=== PATIENT | male | born 1960 | race Caucasian/White ===

== ENCOUNTER → 2020-05-15 07:35 | Outpatient (CLI) | payer OTHER, SELFPAY ==
--- NOTE | ~2020-05-15 | MR_ITS ---
EXAMINATION: MR knee RT wo con DATE: 05/15/2020 08:17 INDICATION: Right knee pain TECHNIQUE: Magnetic resonance imaging (MRI) of the right knee was performed without intravenous contr ast. Sequences included coronal PD-weighted FSE, coronal PD-weighted FS FSE, sagittal T2-weighted FS E, sagittal PD-weighted FS FSE and axial PD weighted fat saturated FSE. COMPARISON: None. FINDINGS: Medial compartment: Complex medial meniscal tear with longitudinal horizontal tear extending to the superior articular miller rface of the posterior body and posterior horn with additional secondary tear planes at the medial si de of the posterior horn including a parrot beak configuration tear plane. There is chondral swelling with fissuring along the lateral margin of the central weightbearing medial femoral condyle with desiree rly imperceptible underlying cortical irregularity. Lateral compartment: Lateral meniscus is normal. Deep chondral fissuring with underlying subtle cortical irregularity and minimal increased marrow signal at the posterior weightbearing lateral femoral condyle. Patellofemoral compartment: Deep chondral fissuring with crabmeat-like appearance and with underlying mild cortical irregularity and increased marrow signal at the cephalad two thirds of the medial patellar facet. Shallow chondral surface regularity scattered along portions of the remaining patella. Deep chondral ulceration along significant portion of the lateral trochlea. Underlying flat subchondral osteophyte at the central a spect of the lateral trochlea and more prominent irregularity, subarticular cystic change and increas ed marrow signal at the inferior aspect of the lateral trochlea. Ligaments and tendons: Anterior and posterior cruciate ligaments are normal. The medial collateral ligament and fibular neela ateral ligament complex are normal. The extensor mechanism is normal. Mild tendinopathy without discr ete tear of the distal semimembranosus tendon. The remainder of the visualized medial and lateral ham string tendons as well as the iliotibial band are normal. Fluid: Moderate-sized right knee joint effusion. There is also a moderate sized Rhodes's cyst. There is a 7 x 7 x 1-2 mm loose body, possibly a displaced chondral fragment in the recess along the posterior infe rior margin of the medial side of the posterior horn of the lateral meniscus. Mild synovitis and an a dditional tiny loose body within the Rhodes's cyst. Mild prepatellar edema surrounding the small fluid containing prepatellar bursa consistent with bursitis. Osseous/other: Normal marrow signal aside from the previously noted small regions of likely degenerative subarticula r increased signal. No fracture or pathologic marrow replacing process. IMPRESSION: 1. Complex medial meniscal tear. 2. Mild tricompartmental osteoarthritis with regions of moderate to high-grade chondromalacia in all 3 compartments 3. Moderate-sized knee joint effusion with small loose body, possibly displaced chondral fragment at the posterior posterior recess of the lateral compartment. 4. Moderate sized Rhdoes's cyst. 5. Mild prepatellar bursitis. Reviewed, dictated and finalized at location B. MS COUNSEL IMPRESSION: 1. Complex medial meniscal tear. 2. Mild tricompartmental osteoarthritis with regions of moderate to high-grade chondromalacia in all 3 compartments 3. Moderate-sized knee joint effusion with small loose body, possibly displaced chondral fragment at the posterior posterior recess of the lateral compartment . 4. Moderate sized Rhodes's cyst. 5. Mild prepatellar bursitis.
== END ==
DX: S83.231A Complex tear of medial meniscus, current injury, right knee, initial encounter (principal); M17.11 Unilateral primary osteoarthritis, right knee; M71.21 Synovial cyst of popliteal space [Baker], right knee
CPT/HCPCS: 73721

== ENCOUNTER → 2020-05-22 08:31 | Outpatient (CLI) | payer OTHER, SELFPAY ==
--- NOTE | ~2020-05-22 | MR_ITS ---
EXAMINATION: MR shoulder LT wo con DATE: 05/22/2020 09:58 INDICATION: Rotator cuff tear. TECHNIQUE: Magnetic resonance imaging (MRI) of the left shoulder was performed without intravenous co ntrast. Sequences included axial PD-weighted FS FSE, coronal oblique PD-weighted FS FSE and T2-weight ed FS FSE, and sagittal oblique T2-weighted FS FSE and T1-weighted FSE. COMPARISON: None. FINDINGS: Coracoacromial arch: The acromion undersurface is curved in morphology with anterior hook (type III). There is severe acro mioclavicular joint osteoarthritis including inferiorly directed osteophytes. There is mild subacromi al/subdeltoid bursitis. Rotator cuff: There is severe supraspinatus and infraspinatus tendinopathy. There is articular sided partial-thickn ess tear of supraspinatus and infraspinatus tendons measuring 1.4 cm anterior to posterior by 4 mm pr oximal to distal by 70% tendon thickness. Teres minor tendon is normal. There is severe subscapularis tendinopathy with articular-sided partial-thickness tear. There is no asymmetric fatty atrophy of th e rotator cuff muscle bellies. Biceps tendon and glenoid labrum: Biceps tendon is in bicipital groove. Intra-articular biceps tendon is normal. The glenoid labrum is normal. Fluid: There is a small glenohumeral joint effusion. Bones/cartilage: Glenoid cartilage is normal. Humeral head cartilage is normal. IMPRESSION: 1. Severe rotator cuff tendinopathy with articular-sided, partial-thickness tears. 2. Small glenohumeral joint effusion. 3. Severe acromioclavicular joint osteoarthritis. 4. Mild subacromial/subdeltoid bursitis. Reviewed, dictated and finalized at location A. SS CLERK IMPRESSION: 1. Severe rotator cuff tendinopathy with articular-sided, partial-thickness tea rs. 2. Small glenohumeral joint effusion. 3. Severe acromioclavicular joint osteoarthritis. 4. Mild subacromial/subdeltoid bursitis.
--- NOTE | ~2020-05-22 | MR_ITS ---
EXAMINATION: MR shoulder RT wo con DATE: 05/22/2020 09:58 INDICATION: Right rotator cuff tear. TECHNIQUE: Magnetic resonance imaging (MRI) of the right shoulder was performed without intravenous c ontrast. Sequences included axial PD-weighted FS FSE, coronal oblique PD-weighted FS FSE and T2-weigh keith FS FSE, and sagittal oblique T2-weighted FS FSE and T1-weighted FSE. COMPARISON: None. FINDINGS: Coracoacromial arch: The acromion undersurface is curved in morphology with anterior hook (type III). There is severe acro mioclavicular joint osteoarthritis including inferiorly directed osteophytes. There is moderate subac romial/subdeltoid bursitis. Rotator cuff: There is moderate supraspinatus and infraspinatus tendinopathy. In posterior supraspinatus tendon, th ere is an articular-sided partial-thickness tear measuring 2 mm proximal to distal by 2 mm anterior t o posterior by 15% tendon thickness. There is mild teres minor tendinopathy. There is moderate subsca pularis tendinopathy. There is no asymmetric fatty atrophy of the rotator cuff muscle bellies. Biceps tendon and glenoid labrum: Biceps tendon is in bicipital groove. Intra-articular biceps tendon is normal. The glenoid labrum is intact. Fluid: There is no glenohumeral joint effusion. Bones/cartilage: Glenoid cartilage is normal. Humeral head cartilage is normal. IMPRESSION: 1. Moderate rotator cuff tendinopathy with small articular-sided, partial-thickness tear of supraspin atus tendon. 2. Moderate subacromial/subdeltoid bursitis. 3. Severe acromioclavicular joint osteoarthritis. Reviewed, dictated and finalized at location A. ER MONKEY IMPRESSION: 1. Moderate rotator cuff tendinopathy with small articular-sided, partial-thick ness tear of supraspinatus tendon. 2. Moderate subacromial/subdeltoid bursitis. 3. Severe acromioclavicular joint osteoarthritis.
== END ==
DX: M75.102 Unspecified rotator cuff tear or rupture of left shoulder, not specified as traumatic (principal); M25.412 Effusion, left shoulder; M19.012 Primary osteoarthritis, left shoulder; M75.52 Bursitis of left shoulder; M19.011 Primary osteoarthritis, right shoulder; M75.51 Bursitis of right shoulder
CPT/HCPCS: 73221

== ENCOUNTER 2021-11-11 01:31 | Day surgery (SDC) | payer OTHER, SELFPAY ==
[2021-11-08 08:53] VITALS: BMI 31.1
--- NOTE | 2021-11-08 09:02 | PC.NURSE ---
Report to the Outpatient Waiting Room, entrance under the green pavilion located off [facility], at time 0800 on date 11/11/21. OR Time: 1000. - You and your visitor will be asked to self-screen and do not enter if you have any COVID symptoms. - Only one visitor and NO children visitors are allowed at this time. - The patient visitor is requested to leave or wait in car when not with patient due to restrictions. - A mask is required within the hospital. Patients may have clear liquids (water, carbonated beverages, clear teas, apple juice) until 3 hours prior to surgery with a maximum of 20 ounces. - No food from midnight until time of surgery Take the following medications with a SIP of water the morning of surgery: NONE Medications to discontinue per physician: VITAMIN Date to take last dose: 11/07/21 Please no make-up, nail vincentian, hairspray, perfume, deodorant, or body powder the day of surgery. No jewelry (including any body piercings) or valuables the day of surgery, leave them at home. Please take a shower or bath the night before, or the morning of, surgery with an antibacterial soap. Wear comfortable, loose fitting clothing. - Jewelry must be removed prior to entering the operating room. Rings and piercings that are not removed may be cut off. - The hospital will not accept responsibility for valuables. - Please leave all valuables, including medications, at home the day of surgery. If you are going home after surgery, a licensed local company tanker driver must drive you home. - NO public transportation without another adult. - We recommend that an adult stay with you for 24 hours following discharge. - We also recommend that you do not drive, make important decision, drink alcoholic beverages, or take any drugs that were not prescribed by your health care provider for at least 24 hours after your discharge time. Follow any additional instructions given to you from your surgeon. If you or anyone in your household have experienced Covid symptoms in the past week, please notify your surgeon or the nurse liaison at the phone number below for possible testing. Telephone instructions given to PT - VISHAL TANG and asked if any additional questions and then verbalized understanding. Patient advised to call surgeon office or pre surgery nurse liaison [phone] if any additional questions.
[2021-11-11 08:14] VITALS: BP 131/76; PULSE 52; RESP 16; TEMP 36.3; O2SAT 98
--- NOTE | 2021-11-11 08:28 | SUR.PREOP ---
DR JOHANSEN STATES NO SHAVE NEEDED IF PT HAND IS NOT EXTREMELY HAIRY
[2021-11-11] MEDS: LACTATED RINGERS 1,000 ML 30 ML IV CONT ×2 (08:41→10:17)
[2021-11-11] MEDS: KETOROLAC 15 MG/ML VIAL (*BKC) IV PUSH (08:42)
[2021-11-11] MEDS: ACETAMINOPHEN 500 MG TABLET 1000 MG PO (08:42)
--- NOTE | 2021-11-11 09:08 | P.PNAN_ITS ---
Anes - Initial Pre Proc Eval Procedure: Operation Date: 11/11/21 10:00 Proposed Procedures p Left Trigger Thumb Release - Jose Ramon Vargas MD Date/Time: 11/11/21 09:08 Surgeon: Jose Ramon Vargas MD Pre Op Diagnosis: Lt Trigger Thumb Patient Data Age: 60 Gender: M Height: 1.73 m Weight: 93.5 kg Last Vital Signs Temp 36.3 C L 11/11/21 08:14 Pulse 52 L 11/11/21 08:14 Resp 16 11/11/21 08:14 BP 131/76 11/11/21 08:14 Pulse Ox 98 11/11/21 08:14 O2 Del Method Room Air 11/11/21 08:14 Allergies Allergy/AdvReac Type Severity Reaction Status Date / Time No Known Allergies Allergy Verified 11/08/21 08:52 Home Medications Medication Instructions Recorded Confirmed Type alprazolam 0.25 mg tablet 0.25 mg PO DAILY 11/07/21 11/11/21 History aspirin 81 mg capsule 81 mg PO DAILY 11/07/21 11/11/21 History atenolol 25 mg tablet 25 mg PO DAILY 11/07/21 11/11/21 History multivitamin 1 tablet PO DAILY 11/07/21 11/11/21 History sertraline 50 mg tablet 50 mg PO DAILY 11/07/21 11/11/21 History Patient hx anesthesia problems: none Family hx anesthesia problems: none Results Review: All pre-operative results and documents have been reviewed as part of the pre- operative evaluation. [facility] Past Medical History Medical History Anxiety Depression Hypertension PATRICIA (obstructive sleep apnea) Trigger thumb, left thumb Surgical History Surgical History H/O sinus surgery History of knee surgery History of varicocele Family History Family History Father Family history of alcoholism Family history of cancer Hypertension Depression Cerebrovascular accident Mother Diabetes mellitus Social History Social History Smoking status: Never smoker Alcohol intake: current Drinks per week: 2 Substance use: never Substance use type: does not use Living arrangements: with family Gender identity (if verbalized by the patient): Male Spiritual care concerns: No Anes - Eval Final PreProcedure Day of Procedure 11/11/21 09:08 Patient weight: obese Heart: regular rate and rhythm Lungs: clear to auscultation Airway: Mallampati scale class II Neurological: alert and oriented Last oral intake: >/= 8 hours ASA classification: III Emergent: no Anesthetic plan: proceed Anesthesia type and monitoring: general GIVS and standard monitoring Results Review: All pre-operative results and documents have been reviewed as part of the pre- operative evaluation. Informed Consent: The patient's anesthetic plan and its attendant risks and benefits were discussed with the patient/family/POA. Questions were solicited and answers provided to the satisfaction of the patient/family/POA.
--- NOTE | 2021-11-11 09:11 | WPDHPUPDATE1 ---
History and Physical Update Update Date/Time: 11/11/21 09:11 History and Physical has been reviewed, including an updated exam of the patient. There are NO changes in the patient's condition. Risks, benefits, and alternatives have been discussed and questions answered. Patient agrees to proceed with procedure.
[2021-11-11] MEDS: ceFAZolin 2 GM/D5W 50 ML 2 GM/50 ML BAG IVPB (09:37)
[2021-11-11] MEDS: BUPIVACAINE HCL 0.25% PF 30 ML VIAL INFILTRATE (10:01)
[2021-11-11 10:17] VITALS: BP 105/61; PULSE 56; RESP 14; O2SAT 96
--- NOTE | 2021-11-11 10:24 | P.OP_ITS ---
Procedure Note - Detailed Date of Procedure 11/11/21 Pre-op Diagnosis Lt Trigger Thumb Post-op Diagnosis Same Procedure Performed Left trigger thumb release Surgeon Jose Ramon Vargas MD Heel Coverer Machine Operator Apple Paz Anesthesia MAC and Local Description of Procedure The patient was identified and proper site identified. He was taken to the operating room and transferred to the OR table placing supine taking care to pad the torso and extremities. He was administered IV sedation. A nonsterile tourniquet was placed high on the left arm which was prepped and draped in the usual sterile fashion. Several cc of .25 % plain Marcaine was injected into the subcutaneous tissue over the A1 christopher of the left first digit. The extremity was exsanguinated and the tourniquet was inflated to 250 mmHg remaining up for about 14 minutes. A longitudinal incision was made over the A1 christopher. Subcutaneous tissue was bluntly dissected down to the christopher while protecting the neurovascular bundles. The A1 christopher was identified and then transected longitudinally in line with the incision and tendons. The tendons were delivered into the wound verifying the adequacy of the release. Hemostasis was carried out. The wound was irrigated with sterile saline. Skin edges were r eapproximated with 4-0 nylon suture. Sterile dressing was applied. Tourniquet was released. He tolerated the procedure well and was transferred back to a cart, then taken to the recovery area in stable condition. There were no known intraoperative complications. Estimated blood loss was negligible. Perioperative antibiotics were administered. Estimated Blood Loss 1 Tourniquet Time 14 Drains No Packing No Pathology None sent Complications No immediate complications Condition Stable Disposition PACU
[2021-11-11 10:45] VITALS: BP 108/55; PULSE 50; RESP 20
[2021-11-11 11:10] VITALS: BP 113/60; PULSE 52; RESP 20
== END 2021-11-11 11:20 | disposition home or self-care (01) ==
PROVIDERS: Visit Provider Orthopaedic Surgery
PROC: (CPT 26055; principal; 2021-11-11 10:00)
DX: M65.312 Trigger thumb, left thumb (principal); I10 Essential (primary) hypertension; G47.33 Obstructive sleep apnea (adult) (pediatric); F41.9 Anxiety disorder, unspecified; F32.A Depression, unspecified; Z79.82 Long term (current) use of aspirin; E66.9 Obesity, unspecified; Z68.31 Body mass index [BMI] 31.0-31.9, adult
CPT/HCPCS: 26055; A9270; J0690; J1885; J2250; J2704; J3010; J7120

== ENCOUNTER 2024-04-11 09:08 | Outpatient (CLI) | payer OTHER, SELFPAY ==
--- NOTE | 2024-04-11 09:27 | ECG_ITS ---
Test Date: 2024-04-11 09:37:39 Measurements Intervals [place] Rate: 60 P: 57 SC: 191 QRS: 43 QRSD: 93 T: 31 QT: 382 QTc: 382 Interpretive Statements SINUS RHYTHM WARNING: DATA QUALITY MAY AFFECT INTERPRETATION No previous ECG available for comparison Electronically Signed On 04-11-2024 13:41:54 SPIRAL TUBE WINDER HELPER by Shad Marks M.D.
--- OUTSIDE RECORDS SUMMARY | 2024-04-11 09:49 | XMS_ITS | Clinical Summary ---
Author Organization [facility] Address [address] [place] [address]. [place], [place] [id number] [place] [address] Care Team Providers Care Dye Range Operator Cloth Name Role Phone Anabelle Tracy MD Primary Care Provider [phone] Allergies No known active allergies Immunizations Name Administration Dates Next Due Tdap (Adacel) 03/22/2020 Social History Tobacco Use Types Packs/Day Years Used Date Smoking Tobacco: Never Smokeless Tobacco: Never Alcohol Use Standard Drinks/Week Comments Not Currently 0 (1 standard drink = 0.6 oz pur e alcohol) Sex and Gender Information Value Date Recorded Sex Assigned at Not on file Legal Sex Male 7:59 PM CDT Gender Identity Not on file Sexual Orientation Not on file Last Filed Vital Signs Vital Sign Reading Time Taken Comments Blood Pressure 120/90 03/22/2020 6:55 PM HEALTH POLICY NURSE Pulse 70 03/22/2020 6:55 PM HEALTH POLICY NURSE Temperature 37 ??C (98.6 ??F) 03/22/2020 6:55 PM HEALTH POLICY NURSE Respiratory Rate 16 03/22/2020 6:55 PM HEALTH POLICY NURSE Oxygen Saturation 100% 03/22/2020 6:55 PM HEALTH POLICY NURSE Inhaled Oxygen Concentration - - Weight 93 kg (205 lb) 03/22/2020 6:55 PM HEALTH POLICY NURSE Height 172.7 cm (5' 8 ) 03/22/2020 6:55 PM HEALTH POLICY NURSE Body Mass Index 31.17 03/22/2020 6:55 PM HEALTH POLICY NURSE Plan of Treatment Health Maintenance Due Date Last Done Comments Colorectal Cancer Screening Colonoscopy (10 Years) 1961 Annual Physical 1964 Hepatitis C 11/17/1979 Zoster Vaccines (1 of 2) 11/17/2011 COVID-19 Vaccine ( - 2023-2 5 season) 2023 Influenza Adult (#1) 2023 01/05/2020 DTaP, Tdap and Td Vaccines ( 3 - Td or Tdap) 03/22/2030 03/22/2020, 04/17/2019 RSV Immunization or 60+ Years (1 - 1-dose 75+ series) 2036 Meningococcal B Vaccine Aged Out No l onger eligible based on patient's age to complete this topic Meningococcal Vaccine Aged Out No ovidio archie eligible based on patient's age to complete this topic Pneumococcal Vaccine: Pediatrics (0 to 5 Years) and At-Risk Patients (6 to 64 Years) Aged Out No longer eligible b ased on patient's age to complete this topic RSV Immunizations Under 20 Months Aged Out No longer eligible b ased on patient's age to complete this topic Insurance [facility] [employer] Care Teams Dye Range Operator Cloth Relationship Specialty Start Date End Date Anabelle Tracy MD [address], [facility] [address] [place] [address] PCP - General INTERNAL MEDICINE 03/22/20
--- OUTSIDE RECORDS SUMMARY | 2024-04-11 09:50 | XMS_ITS | Patient Health Record ---
Author Organization [facility] Address [address] [facility] [address] [place] [address] Care Team Providers Care Occup Therapist Name Role Phone Bobo Pimentel MD Primary Care Provider UnavailDavi Thornton Unavailable [phone] Allergies Allergen (clinical drug ingredient) Drug/Non Drug Allergy documented on EMR Reaction Allergy Type Onset Date Status Wellbutrin Unknown Drug Allergy Active Reason For Referral No Information Medications Medication SIG (Take, Route, Frequency, Duration) Notes Start Date End Date Status ALPRAZolam Active Sertraline HCl Activ e Atenolol Active OTC/Vitamins Turmeric, Vit D3 , ASA, MVI, Iron, Calcium, Lutein Active Social History Tobacco Use: Social History Observation Description Date Details (start date - stop date) Former Smoker NA - NA Tobacco Use/Smoking Question Answer Notes Are you a former smoker Section Notes: 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, , 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 Problems Problem Type SNOMED Code ICD Code Onset Dates Problem Status W/U Status Risk Notes Problem [id number] Iron deficiency anemia, unspecified iron deficiency anemia type (D50.9) Active confirmed Plan Of Treatment Pending Test Test Name Order Date Colon and Scope 06/20/2020 Insurance Providers Payer Name Payer Address Payer Phone Subscriber Number Group Number Insured Name Patient Relationship to Insured Coverage Start Date Coverage End Date [facility] Choice/ choice Plus E2 [address] [address] [place] [address] [id number] Juan José Mckay Self - patient is the insured Medical (General) History Medical History History ICD Code Anemia-see HPI Asthma Seizures Hyperlipidemia Anxiety/Depression Prediabetes Mitral Valve Prolapse Chronic Low Back Pain Surgical History Surgery Date(Month/Year) Colonoscopy:Normal exam. 07/2012 Sinusotomy x2 Orthoscopic Knee Varicocele removed from Groin
[2024-04-11 10:05] LABS: Anion Gap 7 mmol/L (4-12); Blood Urea Nitrogen 14 mg/dL (9-20); Calcium 9.2 mg/dL (8.4-10.2); Carbon Dioxide 27 mmol/L (22-30); Chloride 104 mmol/L (98-107); Estimated Glomerular Filt Rate > 60; Glucose 106 mg/dL (65-110); Potassium 4.4 mmol/L (3.4-5.0); Sodium 138 mmol/L (137-145)
== END 2024-04-11 09:09 | disposition home or self-care (01) ==
LOC: ANHSURGERY 09:17
PROVIDERS: Anesthesiology; PCP Physician Assistant Medical; Visit Provider Orthopaedic Surgery
DX: E11.9 Type 2 diabetes mellitus without complications (principal)
CPT/HCPCS: 36415; 80048; 93005

== ENCOUNTER 2024-04-12 00:42 | Day surgery (SDC) | payer OTHER, SELFPAY ==
[2024-04-01 17:30] VITALS: BMI 27.3
--- NOTE | 2024-04-01 17:57 | PC.NURSE ---
Report to the Outpatient Waiting Room, entrance under the green pavilion located off [facility], at 1000 on 04-12-24. Planned Procedure Time: 1200.? Time changes happen often and if your time is changed the preop area will call you the afternoon before. - You and your visitor will be asked to self-screen and do not enter if you have any COVID symptoms. Please call surgeon if you need to reschedule. - A mask is optional within the hospital at this time. Patients may have clear liquids (water, carbonated beverages, clear teas, apple juice) until 3 hours prior to surgery with a maximum of 20 ounces. 0900 - No food from midnight until time of surgery and no smoking. This includes no chewing gum, candy or mints. - Infants may have breast milk until 4 hours before surgery, infant formula 6 hours prior to surgery. - Children will be allowed to drink immediately following surgery.? If applicable, please bring a bottle or sippy cup to assist with drinking. Juice, water, soda, and popsicles are readily available.? For infants on formula, please bring formula the day of surgery.? Pacifiers are allowed. Take only the following medications with a SIP of water on the morning of surgery: None DO NOT STOP ANY OF YOUR OTHER PRESCRIPTION MEDICATIONS PRIOR TO SURGERY EXCEPT THE FOLLOWING May take Mounjaro on . Apr 05, 2024 but DO NOT TAKE on 2024 Medications to discontinue per physician: Vitamins and supplements; Aspirin Date to take last dose: 04-09-24; Per Dr. Yun Please no make-up, nail syriac, hairspray, perfume, deodorant, or body powder the day of surgery.? No jewelry (including any body piercings) or valuables the day of surgery, leave them at home.? Please take a shower or bath the night before, or the morning of, surgery with an antibacterial soap.? Wear comfortable, loose fitting clothing.? Children are encouraged to wear pajamas. - Jewelry must be removed prior to entering the operating room.? Rings and piercings that are not removed may be cut off. - The hospital will not accept responsibility for valuables.? - Please leave all valuables, including medications, at home the day of surgery. If you are going home after surgery, a licensed auto parts delivery driver must drive you home.? - NO public transportation without another adult if you receive anesthesia. - We recommend that an adult stay with you for 24 hours following discharge. - We also recommend that you do not drive, make important decision, drink alcoholic beverages, or take any drugs that were not prescribed by your health care provider for at least 24 hours after your discharge time. For Pediatric surgeries, we recommend two adults accompany the child home. Follow any additional instructions given to you from your surgeon. Telephone instructions given to Anup Mckay and asked if any additional questions and then verbalized understanding. Patient advised to call surgeon office or pre surgery nurse liaison [phone] if any additional questions.
--- NOTE | 2024-04-11 12:46 | P.HP_ITS ---
H&P: HPI History of Present Illness Date/Time: 04/11/24 12:46 Chief Complaint: Right trigger thumb Narrative: 61-year-old male who presents today for A1 christopher release of his right thumb. He has been having triggering in the thumb. This started last year. He had a cortisone injection in December of last year which only gave him about 6 weeks of relief. he had recurrence of catching and locking in his thumb. Patient has had A1 christopher release in his left thumb at this point feels he would rather proceed with A1 christopher release in the right thumb rather than continue nonsurgical treatment. Review of Systems Review of Systems: All systems reviewed & are unremarkable except as noted in HPI and below PMFSH Past Medical History Medical History Impaired fasting blood sugar Depression Anxiety PATRICIA (obstructive sleep apnea) Hypertension Surgical History Surgical History Trigger thumb, left thumb Trigger thumb release November 11, 2021 History of varicocele History of knee surgery H/O sinus surgery Family History Family History Father Family history of alcoholism Family history of cancer Hypertension Depression Cerebrovascular accident Mother Diabetes mellitus Social History Social History Social History: Patient is very confident filling out forms. Patient has not received assistance in the past 12 months. 10/16/2023 Smoking status: Never smoker Second hand tobacco smoke exposure: No Alcohol intake: current Drinks per week: 4 Substance use: never Substance use type: does not use Do You Feel Safe in your Home?: Yes Lack of Transportation: No Lack of Food: Never True Current Housing: I Have Housing Concerned About Future Housing: No Difficulty Paying Gas/Electric Bills: No Difficulty Paying for Meds: No Currently Unemployed: No Education: Bachelor's Degree Difficulty w/ Childcare or Family Care: No Living arrangements: with family Gender identity (if verbalized by the patient): Male Spiritual care concerns: Yes Meds Home Medications and Allergies Home Medications ?Medication ?Instructions ?Recorded ?Confirmed ?Type aspirin 81 mg capsule 81 mg PO DAILY 11/07/21 04/01/24 History multivitamin 1 tablet PO DAILY 11/07/21 04/01/24 History lutein 20 mg capsule 20 mg PO DAILY 12/23/21 04/01/24 History alprazolam 0.25 mg tablet 0.25 mg PO DAILY #30 tabs 10/16/23 04/01/24 Rx atenolol 25 mg tablet 25 mg PO DAILY #90 tabs 10/16/23 04/01/24 Rx sertraline 50 mg tablet 75 mg (1.5 x 50 mg) PO DAILY #135 10/16/23 04/01/24 Rx tabs tirzepatide 2.5 mg/0.5 mL 2.5 mg (0.5 mL) subcut WEEKLY #6 mL 10/16/23 04/01/24 Rx subcutaneous pen injector (Mounjaro) magnesium 250 mg tablet 250 mg PO DAILY 12/30/23 04/01/24 History zinc gluconate 50 mg tablet 50 mg PO DAILY 12/30/23 04/01/24 History Allergies Allergy/AdvReac Type Severity Reaction Status Date / Time No Known Allergies Allergy Verified 04/01/24 17:18 Exam Narrative: 61-year-old male very alert pleasant. H e has moderate tenderness over the A1 christopher in the right thumb. He has hyperextension of the thumb causing him pain at the IP joint. He does have active triggering with range of motion of the thumb. There is no redness or warmth to the thumb. 2+ radial pulse. No numbness or tingling in the fingers. Resp: Auscultation: clear to auscultation bilaterally Cardio: Rate: regular rate Rhythm: regular rhythm Assessment and Plan Assessment and plan (1) Trigger thumb, right thumb: Code(s): M65.311 - Trigger thumb, right thumb Status: Acute Assessment and Plan: 63-year-old male who has had recurrence of his right trigger thumb. Again he has had his left trigger thumb released in 2021. He would rather proceed with surgery at this point rather than continue nonsurgical treatment his right thumb. Surgical procedure well as the risks and complications were discussed in detail all questions were answered we will proceed. He will avoid any anti- inflammatories or aspirin products 1 week prior to surgery.
--- NOTE | 2024-04-11 14:37 | WPDANESEPPF ---
Anes - Initial Pre Proc Eval Procedure: Operation Date: 04/12/24 12:00 Proposed Procedures p A-1 Chhaya Release Right Thumb - Jacobo Yun MD Date/Time: 04/11/24 14:37 Surgeon: Jacobo Yun MD Pre Op Diagnosis: Right Trigger Thumb Patient Data Age: 63 Gender: M Height: 1.73 m Weight: 81.65 kg Allergies Allergy/AdvReac Type Severity Reaction Status Date / Time No Known Allergies Allergy Verified 04/01/24 17:18 Home Medications ?Medication ?Instructions ?Recorded ?Confirmed ?Type aspirin 81 mg capsule 81 mg PO DAILY 11/07/21 04/01/24 History multivitamin 1 tablet PO DAILY 11/07/21 04/01/24 History lutein 20 mg capsule 20 mg PO DAILY 12/23/21 04/01/24 History alprazolam 0.25 mg tablet 0.25 mg PO DAILY #30 tabs 10/16/23 04/01/24 Rx atenolol 25 mg tablet 25 mg PO DAILY #90 tabs 10/16/23 04/01/24 Rx sertraline 50 mg tablet 75 mg (1.5 x 50 mg) PO DAILY #135 10/16/23 04/01/24 Rx tabs tirzepatide 2.5 mg/0.5 mL 2.5 mg (0.5 mL) subcut WEEKLY #6 mL 10/16/23 04/01/24 Rx subcutaneous pen injector (Mounjaro) magnesium 250 mg tablet 250 mg PO DAILY 12/30/23 04/01/24 History zinc gluconate 50 mg tablet 50 mg PO DAILY 12/30/23 04/01/24 History Results Review: All pre-operative results and documents have been reviewed as part of the pre-operative evaluation. PENDING SALE TO [facility] Past Medical History Medical History Impaired fasting blood sugar Depression Anxiety PATRICIA (obstructive sleep apnea) Hypertension Surgical History Surgical History Trigger thumb, left thumb Trigger thumb release November 11, 2021 History of varicocele History of knee surgery H/O sinus surgery Family History Family History Father Family history of alcoholism Family history of cancer Hypertension Depression Cerebrovascular accident Mother Diabetes mellitus Social History Social History Social History: Patient is very confident filling out forms. Patient has not received assistance in the past 12 months. 10/16/2023 Smoking status: Never smoker Second hand tobacco smoke exposure: No Alcohol intake: current Drinks per week: 4 Substance use: never Substance use type: does not use Do You Feel Safe in your Home?: Yes Lack of Transportation: No Lack of Food: Never True Current Housing: I Have Housing Concerned About Future Housing: No Difficulty Paying Gas/Electric Bills: No Difficulty Paying for Meds: No Currently Unemployed: No Education: Bachelor's Degree Difficulty w/ Childcare or Family Care: No Living arrangements: with family Gender identity (if verbalized by the patient): Male Spiritual care concerns: Yes Brian Barrios Final PreProcedure Day of Procedure 04/11/24 14:37 Results Review: All pre-operative results and documents have been reviewed as part of the pre-operative evaluation. Informed Consent: The patient's anesthetic plan and its attendant risks and benefits were discussed with the patient/family/POA. Questions were solicited and answers provided to the satisfaction of the patient/family/POA.
[2024-04-12] VITALS (9 sets, daily range): BP systolic 106–129; BP diastolic 59–79; PULSE 59–78; RESP 12–18; TEMP 36.2–36.6; O2SAT 98–100
--- OUTSIDE RECORDS SUMMARY | 2024-04-12 00:44 | XMS_ITS | Clinical Summary ---
Author Organization [facility] Address [address] [place] [address]. 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 Pulse 70 03/22/2020 6:55 PM CHEMICAL RESEARCH WORKER Temperature 37 ??C (98.6 ??F) 03/22/2020 6:55 PM CHEMICAL RESEARCH WORKER Respiratory Rate 16 03/22/2020 6:55 PM CHEMICAL RESEARCH WORKER Oxygen Saturation 100% 03/22/2020 6:55 PM CHEMICAL RESEARCH WORKER Inhaled Oxygen Concentration - - Weight 93 kg (205 lb) 03/22/2020 6:55 PM CHEMICAL RESEARCH WORKER Height 172.7 cm (5' 8 ) 03/22/2020 6:55 PM CHEMICAL RESEARCH WORKER Body Mass Index 31.17 03/22/2020 6:55 PM CHEMICAL RESEARCH WORKER Plan of Treatment Health Maintenance Due Date [...] patient's age to complete this topic Insurance [facility] Care Teams Pallet Stone Inserter Relationship Specialty Start Date End Date Anabelle Tracy MD [address], [facility] [address] [place] [address] PCP - General INTERNAL MEDICINE 03/22/20
--- OUTSIDE RECORDS SUMMARY | 2024-04-12 00:44 | XMS_ITS | Patient Health Record ---
Author Organization [facility] Address [address] [facility] 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 Problems Problem Type SNOMED Code ICD Code Onset Dates Problem Status W/U Status Risk Notes Problem [id number] Iron deficiency anemia, unspecified iron deficiency anemia type (D50.9) Active confirmed Plan Of Treatment Pending Test Test Name Order Date Colon and Scope 06/20/2020 Insurance Providers Payer Name Payer Address Payer Phone Subscriber Number Group Number Insured Name Patient Relationship to Insured Coverage Start Date Coverage End Date [facility] Choice/ choice Plus E2 [address] [address] [place] [address] [id number] Juan José Mckay Self - patient is the insured Medical (General) History Medical History History ICD Code Anemia-see HPI Asthma Seizures Hyperlipidemia Anxiety/Depression Prediabetes Mitral Valve Prolapse Chronic Low Back Pain Surgical History Surgery Date(Month/Year) Colonoscopy:Normal exam. 07/2012 Sinusotomy x2 Orthoscopic Knee Varicocele removed from Groin
[2024-04-12] MEDS: LACTATED RINGERS 1,000 ML 30 ML IV CONT (10:06)
[2024-04-12] MEDS: ACETAMINOPHEN 500 MG TABLET 1000 MG PO (10:50)
[2024-04-12 10:55] LABS: Glucose Point of Care 116 mg/dl (65-105)
[2024-04-12] MEDS: KETOROLAC 15 MG/ML VIAL (*BKC) IV PUSH (11:00)
--- NOTE | 2024-04-12 11:18 | WPDHPUPDATE1 ---
History and Physical Update Update Date/Time: 04/12/24 11:18 History and Physical has been reviewed, including an updated exam of the patient. There are NO changes in the patient's condition. Risks, benefits, and alternatives have been discussed and questions answered. Patient agrees to proceed with procedure.
--- NOTE | 2024-04-12 11:49 | WPDANESEPPF ---
Anes - Initial Pre Proc Eval Procedure: Operation Date: 04/12/24 12:00 Proposed Procedures p A-1 Chhaya Release Right Thumb - Jacobo Yun MD Date/Time: 04/12/24 11:49 Surgeon: Jacobo Yun MD Pre Op Diagnosis: Right Trigger Thumb Patient Data Age: 63 Gender: M Height: 1.73 m Weight: 81 kg Last Vital Signs Temp 36.6 C 04/12/24 10:27 Pulse 59 L 04/12/24 10:27 Resp 16 04/12/24 10:27 BP 124/70 04/12/24 10:27 Pulse Ox 98 04/12/24 10:27 O2 Del Method Room Air 04/12/24 10:27 Allergies Allergy/AdvReac Type Severity Reaction Status Date / Time No Known Allergies Allergy Verified 04/12/24 11:01 Home Medications ?Medication ?Instructions ?Recorded ?Confirmed ?Type aspirin 81 mg capsule 81 mg PO DAILY 11/07/21 04/12/24 History multivitamin 1 tablet PO DAILY 11/07/21 04/12/24 History lutein 20 mg capsule 20 mg PO DAILY 12/23/21 04/12/24 History alprazolam 0.25 mg tablet 0.25 mg PO DAILY #30 tabs 10/16/23 04/12/24 Rx atenolol 25 mg tablet 25 mg PO DAILY #90 tabs 10/16/23 04/12/24 Rx sertraline 50 mg tablet 75 mg (1.5 x 50 mg) PO DAILY #135 10/16/23 04/12/24 Rx tabs tirzepatide 2.5 mg/0.5 mL 2.5 mg (0.5 mL) subcut WEEKLY #6 mL 10/16/23 04/12/24 Rx subcutaneous pen injector (Ellis) magnesium 250 mg tablet 250 mg PO DAILY 12/30/23 04/12/24 History zinc gluconate 50 mg tablet 50 mg PO DAILY 12/30/23 04/12/24 History Laboratory Tests 04/12/24 10:52 POC Capillary Glucose 116 H mg/dl (65-105) Patient hx anesthesia problems: none Family hx anesthesia problems: none Results Review: All pre-operative results and documents have been reviewed as part of the pre-operative evaluation. [facility] Past Medical History Medical History Impaired fasting blood sugar Depression Anxiety PATRICIA (obstructive sleep apnea) Hypertension Surgical History Surgical History Trigger thumb, left thumb Trigger thumb release November 11, 2021 History of varicocele History of knee surgery H/O sinus surgery Family History Family History Father Family history of alcoholism Family history of cancer Hypertension Depression Cerebrovascular accident Mother Diabetes mellitus Social History Social History Social History: Patient is very confident filling out forms. Patient has not received assistance in the past 12 months. 10/16/2023 Smoking status: Never smoker Second hand tobacco smoke exposure: No Alcohol intake: current Drinks per week: 4 Substance use: never Substance use type: does not use Do You Feel Safe in your Home?: Yes Lack of Transportation: No Lack of Food: Never True Current Housing: I Have Housing Concerned About Future Housing: No Difficulty Paying Gas/Electric Bills: No Difficulty Paying for Meds: No Currently Unemployed: No Education: Bachelor's Degree Difficulty w/ Childcare or Family Care: No Living arrangements: with family Gender identity (if verbalized by the patient): Male Spiritual care concerns: Yes Brian Barrios Final PreProcedure Day of Procedure 04/12/24 11:49 Patient weight: overweight Heart: regular rate and rhythm Lungs: clear to auscultation Airway: Mallampati scale class II Neurological: alert and oriented Last oral intake: >/= 8 hours ASA classification: III Emergent: no Anesthetic plan: proceed Anesthesia type and monitoring: general LMA and standard monitoring Results Review: All pre-operative results and documents have been reviewed as part of the pre-operative evaluation. Informed Consent: The patient's anesthetic plan and its attendant risks and benefits were discussed with the patient/family/POA. Questions were solicited and answers provided to the satisfaction of the patient/family/POA.
[2024-04-12] MEDS: ceFAZolin 2 GM/D5W 50 ML 2 GM/50 ML BAG IVPB (12:10)
[2024-04-12] MEDS: LIDOCAINE 1% LOCAL INJ 10 ML VIAL INFILTRATE (12:32)
--- NOTE | 2024-04-12 12:59 | P.OP_ITS ---
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 He received 2 g of Ancef preoperatively. Local anesthesia with 1% lidocaine plain was utilized. A v-shaped longitudinal incision was made over the flexor crease of the base of the right thumb. Incision was carried through the skin only. Longitudinal dissection of the subcutaneous tissues brought us down to the flexor tendon sheath. Under direct visualization this was incised the center of the sleep sheath. Complete release was achieved proximally again under direct vision. We identified the cleft between the A1 christopher the A2 christopher and we completed the A1 christopher release to the cleft decompressing the tendon. The tendon showed a focal bulbous swelling with just distal to this focal swelling absence of he has will be very mild maceration of the volar surface of the tendon just distal to the focal swelling. There was full range of motion of the thumb. Tourniquet was released wound irrigated hemostasis achieved with a few minutes of gentle pressure and skin closed with 5 0 nylon suture a soft bulky dressing applied. He was transferred to postop recovery room stable condition. No complications. REBEKAH [facility] Surgery - Charge Forward: Surgery Billing (A1 christopher release flexor tendon sheath right thumb)
[2024-04-12 13:02] LABS: Glucose Point of Care 104 mg/dl (65-105)
== END 2024-04-12 14:45 | disposition home or self-care (01) ==
PROVIDERS: PCP Physician Assistant Medical; Visit Provider Orthopaedic Surgery
PROC: (CPT 26055; principal; 2024-04-12 12:00)
DX: M65.311 Trigger thumb, right thumb (principal); Z79.85 Long-term (current) use of injectable non-insulin antidiabetic drugs
CPT/HCPCS: 26055; 82948; A9270; J0690; J1100; J1885; J2003; J2250; J2405; J2704; J3010; J7120